=== PATIENT | male | born 1985 | race Caucasian/White ===

== ENCOUNTER 2023-10-05 13:53 | Outpatient (AMB) | payer MEDICAID, SELFPAY ==
--- NOTE | 2023-10-05 14:00 | A.OFFVIS_ITS ---
Intake Vital Signs 10/05/23 14:07 Height 5 ft 9 in Weight 193 lb 6 oz BMI 28.6 BP 173/76 H Blood Pressure Location Lt brachial Position Sitting Pulse 119 H Pulse Source Pulse Oximeter Pulse Oximetry (%) 99 Intake Visit Reasons: Other idiopathic scoliosis, thoracolumbar region Allergies celecoxib [From Celebrex] Allergy (Unknown, Verified 10/05/23 14:06) Abdominal Pain HPI Other idiopathic scoliosis, thoracolumbar region HPI Details Patient is a pleasant 37 years old male is history of severe scoliosis of thoracolumbar region s/p spinal fusion T2-T12 for scoliosis at [facility] in 2013, presents today for initial evaluation for low back pain with bilateral radiculopathy. Denies any recent trauma, injury, or falls. Patient reports back surgery for scoliosis was helpful however he experiences hardware causes him increase pain during cold weather. He also reports low back pain with radiation to his buttocks and his lower extremities posteriorly and anteriorly is associated numbness and tingling in his both feet and shooting pain behind h is right knee. Pain is aggravated with bending forward, lumbar flexion, lifting, pulling, pushing, prolonged walking or standing. Pain affects his daily functioning, mobility, sleep, and social interactions. He completed physical therapy while residing in [place] over 2 years ago with no pain relief or function improvement. Patient use to manage his pain and Percocet 5-325 mg t.i.d. p.r.n. which provided him adequate analgesia and allowed him to be more functional and less symptomatic. However patient reports he was recently rotated to Suboxone 5 days ago and has experienced significant nausea, occasional vomiting and dizziness. Patient recently completed thoracic and lumbar spine x-rays and [facility] and has shown results on his iPhone which show intact hardware and degenerative changes and thoracic and lumbar spine. He also has pending lumbar spine MRI which is being scheduled. Denies any fever, chills, abdominal or groin pain, weakness, foot drop, bladder or bowel dysfunction, or saddle anesthesia. Location Upper back, radiates to lower back and bilateral lower extremities Duration Chronic pain due to scoliosis Characteristics of symptom or complaint Stabbing, throbbing, burning, tightness, sharp, aching Aggravating or associated factors Movements, walking or standing, forward bending, lifting, cold weather Relieving factors Daily stretching exercises, Flexeril, Percocet, ibuprofen, heat therapy Treatment Physical therapy, back surgery, TENS unit [facility] Medical History Chronic bilateral low back pain with bilateral sciatica Insomnia Cervicalgia Depression Chronic headaches Chronic pain syndrome Surgical History History of spinal fusion for scoliosis Social History Alcohol intake: former Patient Tobacco Use Status: Former Tobacco user Quit Date: March 2023 Tobacco use type: Cigarette e-Cigarette/Vaping Use: Currently Using Substance Use Type: Marijuana and Caffiene Substance Use Type Other:: 3-4 cups of coffee daily Review of Systems Const All systems reviewed & are unremarkable except as noted in HPI and below Physical Exam Vital Signs: Last Vital Signs Pulse 119 H 10/05/23 14:07 BP 173/76 H 10/05/23 14:07 Pulse Ox 99 10/05/23 14:07 BMI result Body Mass Index 28.6 General: Appears afebrile. Alert and oriented. Mood and affect appropriate. Follows and participates in conversation appropriately. Respiratory effort is unlabored. No cough. Able to transition from sit to stand unassisted. Ambulates with bilaterally normal heel strike and toe off, increase in right posterior leg pain with toe standing. Back/Spine/Pelvis Other: Limited lumbar ROM due to pain. Can flex forward to 60-65 degrees and extend to 5-10 degrees before experiencing lumbar pain. Demonstrates 5/5 strength of quadriceps bilaterally as well as flexion/dorsiflexion of bilateral feet against resistance. 2+ pedal pulses bilaterally. Seated straight leg rise with dorsiflexion positive on the right. +2 patellar and achilles reflexes bilaterally. Facet loading test positive bilaterally. Varghese?s, Gaenslen, Pelvic compression and Stinchfield tests are positive bilaterally. No groin pain with I/E hip rotations. Valsalva maneuver negative. Cervical Spine: cervical ROM normal and No Cervical spine tenderness Thoracic/Lumbar Spine: thoracic and lumbar spine normal to inspection, Thoracic/lumbar spine scar(s), Lasegue's sign positive on the right and localized, pain with thoraco-lumbar ROM, paraspinal muscle tenderness, thoraco- lumbar ROM limited, Thoracic/lumbar scoliosis, thoraco-lumbar spasm, No thoracic spinal tenderness and lumbar spinal tenderness Pelvis: no buttock tenderness Sacroiliac joints: bilaterally tender to palpation Extrem General: Yes capillary refill normal, Yes no clubbing, cyanosis or edema and Yes no calf tenderness Psych Appearance: grossly normal Mental Status: mental status grossly normal Speech and movement: Normal speech and movement present Affect: normal affect and Anxious affect present Attitude: cooperative Thought process: Normal thought process present Thought content: Normal thought content present, suicidality (none), no hallucinations and No Depressive thoughts present Insight: Good insight present (Psych) Judgement: Good judgement present (Psych) Results Reviewed Results Reviewed: No imaging reports are available for review. Assessment & Plan Assessment & Plan (1) Failed back syndrome: Code(s): M96.1 - Postlaminectomy syndrome, not elsewhere classified (2) Muscle spasm: Code(s): M62.838 - Other muscle spasm (3) Chronic pain syndrome: Code(s): G89.4 - Chronic pain syndrome (4) Chronic, continuous use of opioids: Code(s): F11.90 - Opioid use, unspecified, uncomplicated (5) Chronic bilateral low back pain with bilateral sciatica: Code(s): M54.42 - Lumbago with sciatica, left side; M54.41 - Lumbago with sciatica, right side; G89.29 - Other chronic pain (6) Lumbar spondylosis: Code(s): M47.816 - Spondylosis without myelopathy or radiculopathy, lumbar region Plan Discussed treatment options for both his axial low back as well as radicular pain. For ongoing axial low back pain will tentatively plan for diagnostic bilateral L3-L4 DR L5 medial branch blocks with local and fluoroscopy. If he has significant relief from the diagnostic blocks for his axial low back pain, will consider either therapeutic injections, Sprint PNS or RFA depending on his preference. We also discussed neuromodulation with spinal cord stimulation. Patient has pending lumbar spine MRI which has not been scheduled yet. Once completed, patient will return to the clinic to discuss results of the MRI findings when it is done and consider interventional therapy as indicated.? Patient was advised to notify his PCP with current symptoms when taking Suboxone and consider switching it to Zubsolv to decrease nausea episodes. I have informed patient that our office does not offer opioid prescribing at this time. Scripts provided for methocarbamol and diclofenac potassium. Side effects and precautions were discussed with patient. Patient will stop Flexeril due to drowsiness and dizziness. All questions and concerns have been answered and patient agreed with the plan. Follow-up for MRI results and sooner as needed. Medications: New diclofenac potassium Take it with food and full glass of water. 50 mg PO BID PRN 60 tabs 0RF pain 30 days G89.4 - Chronic pain syndrome, M96.1 - Postlaminectomy syndrome, not elsewhere classified methocarbamol 750 mg PO Q8H PRN 90 tabs 0RF muscle spasm 30 days G89.4 - Chronic pain syndrome, M62.838 - Other muscle spasm, M96.1 - Postlaminectomy syndrome, not elsewhere classified Coding Level of Care Code New Pt Level 4 (41122) Diagnoses Failed back syndrome M96.1 Muscle spasm M62.838 Chronic pain syndrome G89.4 Chronic, continuous use of opioids F11.90 Chronic bilateral low back pain with bilateral sciatica M54.42; M54.41; G89.29 Lumbar spondylosis M47.816
[2023-10-05 14:07] VITALS: BP 173/76; PULSE 119; O2SAT 99; BMI 28.6
== END 2023-10-05 14:53 | disposition home or self-care (01) ==
PROVIDERS: PCP Nurse Practitioner Family; Referring Provider Nurse Practitioner Family; Visit Provider Nurse Practitioner Family
DX: M96.1 Postlaminectomy syndrome, not elsewhere classified (principal); M62.838 Other muscle spasm; G89.4 Chronic pain syndrome; Z79.891 Long term (current) use of opiate analgesic; M54.42 Lumbago with sciatica, left side; M54.41 Lumbago with sciatica, right side; G89.29 Other chronic pain; M47.816 Spondylosis without myelopathy or radiculopathy, lumbar region
CPT/HCPCS: 99204

== ENCOUNTER → 2023-10-05 13:53 | Outpatient (BNVA) | payer MEDICAID, SELFPAY | PROVIDERS: PCP Nurse Practitioner Family; Referring Provider Nurse Practitioner Family; Visit Provider Nurse Practitioner Family | DX: M96.1 Postlaminectomy syndrome, not elsewhere classified (principal); M62.838 Other muscle spasm; M54.42 Lumbago with sciatica, left side; M54.41 Lumbago with sciatica, right side; M47.816 Spondylosis without myelopathy or radiculopathy, lumbar region; F11.20 Opioid dependence, uncomplicated; G89.29 Other chronic pain | CPT/HCPCS: 99212 ==

== ENCOUNTER 2023-10-23 09:05 | Outpatient (AMB) | payer MEDICAID, SELFPAY ==
--- NOTE | 2023-10-23 09:14 | A.OFFVIS_ITS ---
Intake Intake Visit Reasons: lumbago with sciatica Heel Gouger Required: No Allergies celecoxib [From Celebrex] Allergy (Unknown, Verified 10/05/23 14:06) Abdominal Pain PFSH Medical History Chronic bilateral low back pain with bilateral sciatica Insomnia Cervicalgia Depression Chronic headaches Chronic pain syndrome Surgical History History of spinal fusion for scoliosis Social History Alcohol intake: former Patient Tobacco Use Status: Former Tobacco user Quit Date: March 2023 Tobacco use type: Cigarette e-Cigarette/Vaping Use: Currently Using Substance Use Type: Marijuana and Caffiene Assessment & Plan Assessment & Plan (1) Chronic bilateral low back pain with bilateral sciatica: Code(s): M54.42 - Lumbago with sciatica, left side; M54.41 - Lumbago with sciatica, right side; G89.29 - Other chronic pain Plan Dear Michelle, Thank you for referring Mr Delgado to our office today. He is a very nice 37-year-old gentleman who has a previous spinal history of scoliosis correction done about 15 or [address] [facility] from T2-T12. 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 He has tried activity modifications and medic ations such as ibuprofen and Tylenol. These things did not seem to be helping much. He is more recently started on oxycodone and morphine which he takes once or twice a day. To this point he has had no conservative treatment in the form of physical therapy or injections. He tells me that he will feel the pain from the moment he gets up during the day and will get steadily worse throughout the day as he is working. Bending or twisting can be very difficult. He was sent today because of an MRI done at [facility] showing pars defects and spondylolisthesis at L5-S1. He was not felt to be a good candidate for injections at the pain management office. PMH: Scoliosis correction, cholecystectomy Social hx: She has not smoke cigarettes or use alcohol but he smokes marijuana daily Medications: Oxycodone, morphine, ibuprofen and Tylenol Allergies: No drug allergies Physical exam: He is awake alert oriented no acute distress he has full strength of bilateral lower extremities with normal gait. Imaging review: Lumbar MRI done at [facility] shows pars defects at L5 with grade 1 spondylolisthesis and bilateral L5 foraminal narrowing. There is also MRI of his thoracic an x-ray of his thoracic showing Vickers rods from T2-T12 with minimal scoliotic curve. Impression: 37-year-old male with history of scoliosis correction in Vickers rods from T2-T12 done 15 years ago, presenting to the office today for evaluation of a progressively worsening low back pain over the last 6 months which is centered around the L5-S1 area and is now giving him what sounds like radiculopathy with some pain down into the back of his legs, lateral thighs with tingling of his feet. I reviewed all his imaging with him, went over the natural history of back pain. We discussed the fact that the scoliosis correction does predispose him to having chronic low back pain, but that he certainly could be experiencing pain from the pars defects and spondylolisthesis with subsequent foraminal narrowing. Typically this is something Dr. Rosales would treat with an anterior lumbar interbody fusion. We reviewed that procedure at length including risks, benefits etc.. We discussed the very rare complication of retrograde ejaculation specifically given his young age. He tells me he has a vasectomy in his not concerned with having any more children. I am going to review his imaging with Dr. Rosales, and finalize his surgical plan. I did give him a referral to physical therapy because typically insurance companies will want this done before surgery, however I do not expect it to do anything meaningful for his pain issues. I will call the patient back once I have a chance to speak with Dr. Rosales. Thank you for allowing us to care for your patient. The total time spent with this visit with this patient was 45 minutes reviewing history, physical exam, lumbar imaging review, and implementation of treatment plan or further diagnostic testing Max Rosales MD,PhD [facility] Orders: Orders PT Evaluation and Treatment Today G89.29 - Other chronic pain, M54.41 - Lumbago with sciatica, right side, M54.42 - Lumbago with sciatica, left side Coding Level of Care Code New Pt Level 4 (62832) Diagnoses Chronic bilateral low back pain with bilateral sciatica M54.42; M54.41; G89.29
== END 2023-10-23 10:18 | disposition home or self-care (01) ==
PROVIDERS: PCP Nurse Practitioner Family; Referring Provider Nurse Practitioner Family; Visit Provider Physician Assistant
DX: M54.42 Lumbago with sciatica, left side (principal); M54.41 Lumbago with sciatica, right side; G89.29 Other chronic pain
CPT/HCPCS: 99204

== ENCOUNTER → 2023-10-23 09:05 | Outpatient (BNVA) | payer MEDICAID, SELFPAY | PROVIDERS: PCP Nurse Practitioner Family; Visit Provider Physician Assistant | DX: M54.42 Lumbago with sciatica, left side (principal); M54.41 Lumbago with sciatica, right side; G89.29 Other chronic pain | CPT/HCPCS: 99212 ==

== ENCOUNTER → 2024-02-03 12:53 | Outpatient (BNV) | payer MEDICAID, SELFPAY | PROVIDERS: Admitting Provider Neurological Surgery; PCP Family Medicine; Visit Provider Internal Medicine | DX: Z01.810 Encounter for preprocedural cardiovascular examination (principal); M54.42 Lumbago with sciatica, left side; M54.41 Lumbago with sciatica, right side | CPT/HCPCS: 93010 ==

== ENCOUNTER 2024-02-05 11:09 | Outpatient (AMB) | payer MEDICAID, SELFPAY ==
--- NOTE | 2024-02-05 12:25 | HO.SPINEOV ---
Intake Visit Reasons: Discuss surgery Intake Note: Mr. Dutton is here today to discuss surgery Finance And Administration Manager Required: No Allergies pistachio nut Allergy (Severe, Verified 02/03/24 12:19) tongue swelling celecoxib [From Celebrex] Adverse Reaction (Severe, Verified 02/03/24 12:18) Abdominal Pain Assessment & Plan Assessment & Plan (1) Anterolisthesis of lumbosacral spine: Code(s): M43.17 - Spondylolisthesis, lumbosacral region Category: Medical (2) Lumbar degenerative disc disease: Code(s): M51.36 - Other intervertebral disc degeneration, lumbar region Category: Medical Plan On 02/05/2024, I saw for preoperative visit Livan Dutton to discuss his upcoming anterior lumbar interbody fusion L5-S1. We discussed the procedure, the expected length of stay which is 1 day and expected recovery. All questions were answered. I spent 20 minutes in his consult. Madhu Rosales MD, PhD Spine Fellowship Trained Neurosurgeon Director, [facility] [place] [facility] Coding Level of Care Code Est Pt Level 3 (73818) Diagnoses Anterolisthesis of lumbosacral spine M43.17 Lumbar degenerative disc disease M51.36
== END 2024-02-05 12:44 | disposition home or self-care (01) ==
PROVIDERS: PCP Nurse Practitioner Family; Referring Provider Nurse Practitioner Family; Visit Provider Neurological Surgery
DX: M43.17 Spondylolisthesis, lumbosacral region (principal); M51.36 Other intervertebral disc degeneration, lumbar region
CPT/HCPCS: 99213

== ENCOUNTER → 2024-02-05 11:09 | Outpatient (BNVA) | payer MEDICAID, SELFPAY | PROVIDERS: PCP Nurse Practitioner Family; Visit Provider Neurological Surgery | DX: M43.17 Spondylolisthesis, lumbosacral region (principal); M51.36 Other intervertebral disc degeneration, lumbar region | CPT/HCPCS: 99212 ==

== ENCOUNTER 2024-02-17 05:56 | Inpatient (IN) | payer MEDICAID, SELFPAY ==
--- NOTE | 2024-02-03 | ECG_ITS ---
Test Reason : preop Blood Pressure : / mmHG Vent. Rate : 074 BPM Atrial Rate : 074 BPM P-R Int : 134 ms QRS Dur : 088 ms QT Int : 372 ms P-R-T Axes : 035 039 017 degrees QTc Int : 412 ms Normal sinus rhythm Normal ECG No previous ECGs available Referred By: Violetta Umaña Electronically Signed By:MARIO ALMODOVAR
[2024-02-03 12:19] VITALS: BP 130/80; PULSE 94; RESP 16; O2SAT 98; BMI 28.1
--- NOTE | 2024-02-03 12:36 | HO.ANESPROP2 ---
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 [facility] Active Problems Active Problems: All Active Problems (Updated 02/03/24 @ 12:33 by Priscila Sauceda, ROYCE) Lumbar degenerative disc disease (Acute) Anterolisthesis of lumbosacral spine (Acute) Lumbar spondylosis (Acute) Chronic, continuous use of opioids (Acute) Muscle spasm (Acute) Failed back syndrome (Acute) Chronic bilateral low back pain with bilateral sciatica (Acute) Chronic pain syndrome (Acute) Past Medical History Medical History Skin graft infection (~1992) Tingling of both feet Scoliosis Postoperative nausea Chronic bilateral low back pain with bilateral sciatica Insomnia Cervicalgia Depression Chronic headaches Chronic pain syndrome Family History Family history of problems with anesthesia: Yes (Father - PONV) Surgical History Surgical History History of surgery on lower extremity Hx of vasectomy (~2019) Hx laparoscopic cholecystectomy History of spinal fusion for scoliosis (~2011) History of Problems with Anesthesia: Yes (PONV) Social History Social History (Updated 02/03/24 @ 12:38 by Priscila Sauceda, ROYCE) Are you a primary care manager to a significant other at home: Yes (2 children-mom to help post-op) Do you presently have visiting nurse or other home services: No Alcohol intake: former Patient Tobacco Use Status: Former Tobacco user Tobacco use type: Cigarette Years Smoked: 20 e-Cigarette/Vaping Use: Former Use Use of substances other than those prescribed or required for medical reasons: Yes Substance Use Type: Marijuana and Caffiene Substance Use Frequency: Daily Have you been hit, kicked, punched, or otherwise hurt by someone within the past year? If so, by whom?: No Are you DNR?: No Advance Directives: No Advance Directives Information Provided: Yes Advance Directives on File: No Recently lost weight without trying: No Poor oral hygiene: No Meds Allergies Allergy/AdvReac Type Severity Reaction Status Date / Time pistachio nut Allergy Severe tongue Verified 06/12/24 06:01 swelling celecoxib [From Celebrex] AdvReac Severe Abdominal Verified 02/17/24 06:01 Pain Home Medications ?Medication ?Instructions ?Recorded ?Confirmed ?Last Taken ?Type bupropion HCl 150 mg tablet,12 hr 150 mg PO BID 02/03/24 02/03/24 02/17/24 04:30 History sustained-release oxycodone-acetaminophen 10 mg-325 1 tab PO Q4H PRN Pain 02/03/24 02/03/24 02/17/24 04:30 History mg tablet (Percocet) Exam Height,Weight and Vital Signs: Height 5 ft 8 in Weight 83.7 kg Last Vital Signs Pulse 94 02/03/24 12:19 Resp 16 02/03/24 12:19 BP 130/80 02/03/24 12:19 Pulse Ox 98 02/03/24 12:19 O2 Del Method Room Air 02/03/24 12:19 Pertinent Lab Results Pertinent Lab Results: Lab Results 02/03/24 02/03/24 Range/Units 12:55 13:07 WBC 13.0 H (4.8-10.8) X10*3/uL RBC 4.91 (4.60-5.80) X10*6/uL Hgb 15.0 (14.0-18.0) g/dl Hct 42.8 (42.0-52.0) % MCV 87.2 (80.0-98.0) fL MCH 30.5 (27.0-33.0) pg MCHC 35.0 (31.0-36.0) g/dl RDW 12.2 (11.0-16.0) % Plt Count 394 (160-400) X10*3/uL MPV 9.4 (9.4-12.4) fL Absolute Nucleated RBC 0.000 (0.0-0.012) X10*3/uL Nucleated RBC % (auto) 0.0 (0.0-0.2) /100WBC Sodium 142 (135-145) mmol/L Potassium 4.4 (3.3-5.1) mmol/L Chloride 107 (96-108) mmol/L Carbon Dioxide 27 (22-29) mmol/L Anion Gap 12 (12-20) BUN 6 L (9-16) mg/dL Creatinine 0.91 (0.5-1.4) mg/dL Estim Creat Clear Calc 117.1 Estimated GFR > 60 Random Glucose 105 (60-115) mg/dL Calcium 10.3 H (8.4-10.2) mg/dL Blood Type O Positive Antibody Screen NEGATIVE Narrative Narrative: EKG 02/2024 Vent. Rate : 074 BPM Atrial Rate : 074 BPM P-R Int : 134 ms QRS Dur : 088 ms QT Int : 372 ms P-R-T Axes : 035 039 017 degrees QTc Int : 412 ms Normal sinus rhythm Normal ECG No previous ECGs available Airway Mallampati Class: II TM Dist: >3cm Neck ROM: Limited (Rods from previous surgery extend to collar bone) Loose/Missing/Broken Teeth: Yes (1 x pulled molar) Heart: RRR Lungs: CTAB Assessment and Plan Assessment Anesthesia Assessment: Anesthesia Plan Discussed, Smoking Cess. Discussed and PAT Visit Final Anesthetic Review Family History of Problems with Anesthesia: Yes (Father - PONV) History of Problems with Anesthesia: Yes (PONV) Documented by User: Rosaura Pereira MD 02/17/24 07:26 [facility] Past Medical History Medical History Skin graft infection (~1992) Tingling of both feet Scoliosis Postoperative nausea Chronic bilateral low back pain with bilateral sciatica Insomnia Cervicalgia Depression Chronic headaches Chronic pain syndrome Surgical History Surgical History History of surgery on lower extremity Hx of vasectomy (~2019) Hx laparoscopic cholecystectomy History of spinal fusion for scoliosis (~2011) Social History Social History (Updated 02/03/24 @ 12:38 by Priscila Sauceda RN) Are you a primary care manager to a significant other at home: Yes (2 children-mom to help post-op) Do you presently have visiting nurse or other home services: No Alcohol intake: former Patient Tobacco Use Status: Former Tobacco user Tobacco use type: Cigarette Years Smoked: 20 e-Cigarette/Vaping Use: Former Use Use of substances other than those prescribed or required for medical reasons: Yes Substance Use Type: Marijuana and Caffiene Substance Use Frequency: Daily Have you been hit, kicked, punched, or otherwise hurt by someone within the past year? If so, by whom?: No Are you DNR?: No Advance Directives: No Advance Directives Information Provided: Yes Advance Directives on File: No Recently lost weight without trying: No Poor oral hygiene: No Meds Allergies Allergy/AdvReac Type Severity Reaction Status Date / Time pistachio nut Allergy Severe tongue Verified 02/17/24 06:01 swelling celecoxib [From Celebrex] AdvReac Severe Abdominal Verified 02/17/24 06:01 Pain Home Medications ?Medication ?Instructions ?Recorded ?Confirmed ?Last Taken ?Type bupropion HCl 150 mg tablet,12 hr 150 mg PO BID 02/03/24 02/03/24 02/17/24 04:30 History sustained-release oxycodone-acetaminophen 10 mg-325 1 tab PO Q4H PRN Pain 02/03/24 02/03/24 02/17/24 04:30 History mg tablet (Percocet) Assessment and Plan Assessment Anesthesia Assessment: Chart Reviewed Final Anesthetic Review NPO: Yes ASA Class: II Final Preanesthetic Review: No Changes in Pt Med Stat, Meds/Allgs Chart Reviewed, Consent Obtained/Reviewed and Anes Risks/Benef Reviewed Patient Risk: Low Procedure Risk: Intermediate Anesthetic Plan Anesthetic Plan: GA Disposition: Standard PACU
[2024-02-03 13:38] LABS: Hematocrit 42.8 % (42.0-52.0); Mean Corpuscular Hemoglobin 30.5 pg (27.0-33.0); Mean Corpuscular Volume 87.2 fL (80.0-98.0); Mean Platelet Volume 9.4 fL (9.4-12.4); Platelet Count 394 X10*3/uL (160-400); Red Blood Count 4.91 X10*6/uL (4.60-5.80); Red Cell Distribution Width 12.2 % (11.0-16.0)
[2024-02-03 14:42] LABS: Anion Gap 12 (12-20); Blood Urea Nitrogen 6 mg/dL (9-16); Calcium 10.3 mg/dL (8.4-10.2); Carbon Dioxide 27 mmol/L (22-29); Chloride 107 mmol/L (96-108); Creatinine Clr Calc Pharmacy 117.1; Estimated Glomerular Filt Rate > 60; Glucose Random 105 mg/dL (60-115); Potassium 4.4 mmol/L (3.3-5.1); Sodium 142 mmol/L (135-145)
[2024-02-17] VITALS (25 sets, daily range): BP systolic 116–151; BP diastolic 54–98; PULSE 80–121; RESP 14–24; TEMP 36.3–36.7; O2SAT 96–100; BMI 28.2
--- NOTE | ~2024-02-17 | FL_ITS ---
EXAMINATION: XR FLUOROSCOPY WITH IMAGES CLINICAL INFORMATION: L5-S1 lumbar interbody fusion. COMPARISON: None available. TECHNIQUE: Fluoroscopy Supervised By: Dr. Madhu Rosales. Fluoroscopy Time: 1 minute 8 seconds. Cumulative Dose: 67.959 mGy. DAP: 22.972 Gy-cm2. Images: 4. FINDINGS: Imaging and fluoroscopy provided to Dr. Rosales for L5-S1 posterior pedicular screws and interbody device. Please see Dr. Rosales' report for full details. FL/FL guidance in OR IMPRESSION: Fluoroscopy and imaging provided for L5-S1 posterior pedicular screws and interbody devices.
--- NOTE | ~2024-02-17 | XR_ITS ---
EXAMINATION: XR LUMBOSACRAL SPINE CLINICAL INFORMATION: Evaluation of hardware COMPARISON: None available. TECHNIQUE: Single view of the lumbar spine FINDINGS: Surgical hardware seen at the lumbosacral junction. There is stabilization hardware in the lower thoracic spine as well as surgical clips in right upper quadrant. Pelvis intact. Hips intact. XR/XR lumbar spine 1V IMPRESSION: Intervertebral disc spacer overlies the lumbosacral junction on this single view.
[2024-02-17] MEDS: methocarbamoL 750 MG TABLET PO ×3 (06:21→21:01)
[2024-02-17] MEDS: Gabapentin 300 MG CAPSULE PO ×3 (06:22→19:58)
[2024-02-17] MEDS: Scopolamine 1.5 MG PATCH.TD.3 TRANSDERMA (06:23)
[2024-02-17] MEDS: Lactated Ringers 1,000 ML 100 ML IVCONT (06:33)
--- NOTE | 2024-02-17 07:15 | MHC.SHP ---
Pre-Procedural Eval Section A - 24 Hr Update-Section A only Date of Service: 02/17/24 Section B - Complete if H&P > 30 days Chief Complaint: Chronic back pain Relevant Social History: None Present Medications: None Medical History: No relevant PMH Allergies: Allergies Allergy/AdvReac Type Severity Reaction Status Date / Time pistachio nut Allergy Severe tongue Verified 02/17/24 06:01 swelling celecoxib [From Celebrex] AdvReac Severe Abdominal Verified 02/17/24 06:01 Pain Review of Systems Sugical H&P ROS: Negative: Constitution, Cardiovascular, Respiratory, Neurological, Psychiatric, Hem-Onc, Allergic/Immunologic, Gastrointestinal, Genitourinary, Musculoskeletal, Integumentary, Endocrine and Eyes/Ears/Nose/Throat Exam Surgical H&P Exam: Normal: HEENT, Normal: Abdomen (Nontender), Normal: Skin and Normal: Neurological and Not Evaluated: Heart and Not Evaluated: Lungs Plan Diagnosis/Plan: Unchanged I have reviewed the history and physical and performed a pertinent physical examination on my patient. No changes have occurred unless specified. Anterior lumbar interbody fusion L5-S1 Time Spent With Patient Time: Total time managing care of this patient today ___10_ minutes.
--- NOTE | 2024-02-17 07:53 | PHA.MEDREC ---
Pharmacy Consult ? Medication Reconciliation Pharmacy has completed the medication reconciliation. Reviewed med rec done by nursing
--- NOTE | 2024-02-17 09:08 | P.OP_ITS ---
Operative Note Operative Note Date of Service: 02/17/24 Narrative: Patient was evaluated by Dr. Rosales for chronic lower back pain and radiculopathy and scheduled for ALIF L5-S1. I met with the patient pre- operatively and discussed the access part of the procedure and risks an the patient agreed to proceed. He was brought to the operating room and general anaesthesia was administered without incident. Abdomen was prepped sterily and draped. Timeout was done. 6 cm infra-umbilical vertical incision was done and it was brought down to the anterior rectus sheath through the thick layer of subcutaneous fat. Rectus sheath was opened vertically and left rectus muscle was mobilized. Left inferior epigastric vessels were protected. Spermatic cord was dissected and protected ant retro-peritoneal plane was developed. Left ureter was visualized and protected. Bookwalter retractor was pl aced. Dissection was carried at the medial aspect of the the left common iliac vein which was mobilized from the spine and middle sacral vessels were divided, Bipolar electrocautery was used to completely free L5-S1 disc anteriorly. Care was taken to stay immidiately on the surface of the spine to avoid nerve injury.Midline was marked with X-ray imaging. Doctor Rosales then proceeded with diskectomy and cage fusion.Hemostasis was checked and was excellent. Gelfoam sponge was placed over the disc space. Ureter was intact and there was a good iliac pulse. Incision was injected with diluted Lidocaine/Marcaine mixture and closed by layers using O-Maxone on the fascia and absorbable subcutaneous and subcuticular closure. Exofin glue and steri-strip were applied. EBL: less then 10ml Complication:none
--- NOTE | 2024-02-17 10:31 | P.OP_ITS ---
Operative Note Operative Note Date of Service: 02/17/24 Narrative: Preoperative Diagnosis: 1.) Lumbar spondylolisthesis and degenerative disc disease L5-S1; back pain Procedure: L5-S1 discectomy, arthrodesis and implantation cage through an anterior lumbar approach (ALIF) ; anterior instrumentation L5-S1; allograft Indication for Surgery Lumbar degenerative disc disease and lumbar spondylolisthesis Consent Informed Consent was obtained for this operation. I have explained the nature, purpose and benefits of the operation. I have discussed the risks and benefit of the operation including possible complications or adverse events with patient/family. Alternative(s) were discussed with the patient with their relative benefits and risks as well as the consequences of not accepting the operation were included in obtaining consent. Surgeon: DO BENSON MD, PHD Procedure Assisted By: KEKE NEWMAN MD and BEAN Medrano Description of Procedure This patient is suffering from chronic back pain due to an unstable L5-S1 lumbar spondylolisthesis. The patient was offered an anterior lumbar interbody fusion and posterior instrumented fusion. The procedure complications were explained. The patient was consented. The patient was brought to the operating room and en dotracheally intubated. The patient was put in a supine position. Prep and drape was done followed by timeout. Dr. Newman, co-surgeon, provided the access to the L5-S1 disc space through an anterior approach. He was assisted by physician training and development assistant who performed manual retraction. He will dictate the approach in a separate operative note. When the L5-S1 disc space was exposed I took over the procedure. An annulotomy was done followed by a partial discectomy. Sequential trial implants were inserted and advanced towards the posterior wall of the disc space. I completed the discectomy and prepare the endplates. Then a 24 x 36 x 14 and 16 degree lordosis 4 web cage filled with allograft was inserted into the disc space. The implant was secured with Two screws with 1 screw of 27 mm that was secured in the S1 vertebral body. The retractor was removed and hemostasis was done by Dr. Murray who closed the incision. This marked first part of the procedure. Accordingly the patient was turned prone on the Oleksandr spine table and 2 C arms were installed for fluoroscopy. Prep and drape was done followed by a second timeout. 2 paramedian incisions were made lateral from the L5-S1 pedicles. The muscle fascia was opened and the musculature was split bluntly to expose the posterolateral gutter. The following steps were taken for pedicle screw placement: The pediguard tap was used to create a transpedicular trajectory into the vertebral body. A K wire was advanced. A specially designed instrument was advanced over the K wire to decorticate the posterolateral gutter. Pedicle screw was advanced after which the K wire was removed. Following the steps pedicle screws were placed in the bilateral L5 and S1 pedicles. Total of 4 screws were placed with the following measurements: 6.5 x 45 mm and 6.5 x 40 mm in the bilateral L5 and S1 pedicles respectively.. A 40 mm ray was tunneled bilaterally and locked down with locking caps. The extension towers were removed. The posterolateral fusion was completed by laying down allograft in the posterolateral gutter. Hemostasis was done. The paramedian incisions were closed with an 0 Vicryl to fascia and 3-0 Vicryl to subdermal layer. Steri-Strips were used to approximate the incision. An OpSite with Tegaderm was used to cover the incisions. All sponge and needle counts were correct. The patient was extubated and transported in stable condition to recovery room. The physician training and development assistant was critical for the following aspects of surgery: interpretation of x-rays, insertion of pedicle screws and closure of the paramedian incisions Anesthesia: General Estimated Blood Loss (ml): 120 mL Duration of Surgery: 2 hour 30 minutes Complications: None Postoperative Plan: Admit to inpatient for observation
[2024-02-17] MEDS: HYDROmorphone HCl 0.5 MG/0.5 ML SYRINGE IVPUSH ×7 (11:10→12:35)
[2024-02-17] MEDS: Acetaminophen 325 MG TABLET 975 MG PO (14:31)
[2024-02-17] MEDS: 0.9 % Sodium Chloride 1,000 ML 75 ML IVCONT (14:33)
[2024-02-17] MEDS: ceFAZolin Sodium/Dextrose,Iso 2 GM/50 ML PIGGYBACK IV (14:33)
[2024-02-17] MEDS: HYDROmorphone HCl 1 MG/ML SYRINGE IVPUSH ×4 (14:37→22:55)
[2024-02-17] MEDS: oxyCODONE HCl Immed Release 5 MG TABLET 10 MG PO ×2 (15:18→21:01)
[2024-02-17] MEDS: oxyCODONE HCl Immed Release 5 MG TABLET PO (16:14)
[2024-02-17] MEDS: ondansetron HCL 4 MG/2 ML VIAL IVPUSH (19:16)
--- NOTE | 2024-02-17 19:25 | PC.NURSE ---
Patient c/o uncontrolled pain, medicated per Mar, patient continues c/o severe pain, reached out to the provider but no additional medication ordered, patient informed/educated and night RN made aware. Patient did state that he might want to leave AMA if the pain is not controlled.
[2024-02-17] MEDS: Famotidine 20 MG TABLET PO (19:58)
[2024-02-17] MEDS: Docusate Sodium 100 MG CAPSULE PO (20:01)
[2024-02-18] MEDS: oxyCODONE HCl Immed Release 5 MG TABLET 10 MG PO ×3 (00:58→09:07)
[2024-02-18] MEDS: HYDROmorphone HCl 1 MG/ML SYRINGE IVPUSH ×2 (01:58→07:11)
[2024-02-18] MEDS: HYDROmorphone HCl 2 MG/ML VIAL 1.5 MG IVPUSH (04:11)
[2024-02-18 04:15] VITALS: BP 132/78; PULSE 110; RESP 23; TEMP 37; O2SAT 98
[2024-02-18] MEDS: Acetaminophen 325 MG TABLET 975 MG PO (05:08)
[2024-02-18] MEDS: Famotidine 20 MG TABLET PO (07:10)
[2024-02-18] MEDS: Gabapentin 300 MG CAPSULE PO (07:10)
[2024-02-18] MEDS: Docusate Sodium 100 MG CAPSULE PO (07:11)
[2024-02-18 07:26] VITALS: BP 131/72; PULSE 82; RESP 20; TEMP 37; O2SAT 97
--- NOTE | 2024-02-18 08:00 | HO.POSTANES ---
Post Anesthesia Evaluation Post Anesthesia Evaluation Date of Service: 02/18/24 Vital Signs: Vital Signs Temp Pulse Resp BP Pulse Ox O2 Del Method 02/18/24 07:26 98.6 F 82 20 131/72 97 Room Air 02/18/24 04:15 98.6 F 110 H 23 H 132/78 98 Room Air Anesthesia: General Endotracheal-GETA Mental Status: Awake Pain Control: Satisfactory Nausea/Vomiting: None Hydration: Adequate Anesthesia-Related Issues: No Anes. Related Issues
[2024-02-18 08:43] VITALS: BP 131/72; PULSE 82; O2SAT 97
--- NOTE | 2024-02-18 09:07 | PM.DS ---
DS: Providers Provider Date of Service: 02/18/24 Date of admission: 02/17/24 05:56 Primary care physician: Anamaria Ortiz MD DS: Summary Time Attestation Discharge Coordination Time (in mins): 30 Quality: Safe Use of Opioids Does Pt have an Active Cancer Diagnosis on the Problem List?: No Quality: Stroke Does the patient have a stroke diagnosis?: No Physical Exam Vital Signs: Vital Signs: Last Vital Signs Temp 98.6 F 02/18/24 07:26 Pulse 82 02/18/24 07:26 Resp 20 02/18/24 07:26 BP 131/72 02/18/24 07:26 Pulse Ox 97 02/18/24 07:26 O2 Del Method Room Air 02/18/24 07:26 O2 Flow Rate 6 02/17/24 12:25 BMI result Body Mass Index 28.2 Discharge Plan Discharge Anticipated Discharge Date/Time: 02/18/24 09:07 Patient Disposition: Home, Self-Care Discharge Diagnosis: S/P L5-S1 ALIF Referrals: Anamaria Ortiz MD [Primary Care Provider] - 1 Week Discharge Medications: New hydromorphone 4 mg tablet 4 mg PO TID PRN (Reason: severe pain refractory to oxycodone) Qty: 9 0RF gabapentin 300 mg capsule 300 mg PO BID Qty: 30 0RF methocarbamol 750 mg tablet 750 mg PO BID PRN (Reason: muscle spasms) Qty: 30 0RF Continued bupropion HCl 150 mg Tablet Sustained-Release 12 Hr 150 mg PO BID oxycodone-acetaminophen [Percocet] 10-325 mg Tablet 1 tab PO Q4H PRN (Reason: Pain) Discharge Orders: Discharge Order (Routine); Ordered 02/18/24 Ordered By: Fredi Padilla Diet: Advance to usual diet Activity on Discharge: As tolerated Stand Alone Forms: Patient Portal Discharge page Print Language: Vincentian Activity Restrictions/Additional Instructions: After your spinal surgery we ask you to observe the following restrictions/guidelines: Activity: With lumbar fusion surgery it is normal to have days in the first couple of weeks where you have increased leg pain. This usually lasts 1-2 days and self resolves with the continuation of medication. Attempt to stay mobile and continue activity as tolerated. It is normal to feel some discomfort as you increase your activity, but that will improve with time. We ask you avoid heavy lifting or activities that cause pain. As a general rule, 8lbs is a safe limit for lifting right after surgery. Walk as much as you feel comfortable but not to exhaustion. You will feel extra tired the first few days after surgery. Stay well hydrated. It is OK to walk up and down stairs You may return to driving when you are off narcotics (such as vicodin, oxycodone, dilaudid, etc), and you are back to normal functional capacity. If you have any concerns please check with office before driving. Return to work is specific to each patient and each surgery, so please speak with your doctor/PA at first follow up. Please bring paperwork such as FMLA at that time if you need it filled out. Medications: We are sending you home with a small Rx of dilaudid to get you through the next few days. This will not refilled, you already take chronic Oxycodone. It is recommended that you take Tylenol 500 mg every 4 hours for the 1st week postoperatively, ?alongside ibuprofen 600 mg every 8 hours. We will also be prescribing gabapentin 300 mg to be taken twice daily for the 1st month postoperatively. We will give you a short supply of narcotics after surgery (usually one weeks worth). ??Please use this for breakthrough pain that is refractory to the Tylenol ibuprofen and gabapentin. If you need more please call the office but do not use more than prescribed. You will need to give our office 48 hours notice if you need narcotics refilled and we do not fill narcotics on weekends or evenings. If you are on a narcotic, it is a good idea to take a stool softener such as colace or senna to avoid constipation If you take blood thinner such as aspirin, Plavix, Coumadin, Effient, Eliquis etc for conditions such as Afib, DVT, Pulmonary embolus, coronary disease, stents etc please speak with your surgeon about specific details as to when you can resume these medications. You can resume NSAIDs on post op day 1 (eg: Motrin, Naproxen, etc). Follow up: Please call the office, , after surgery to arrange a 3 week follow up for wound check. Wound Care: You may remove your dressing on the first day after surgery. ?You may ?leave open to air. Please do not remove the steri strips underneath. they will fall off on their own in one week. IT IS NORMAL FOR THE WOUND TO OOZE OR BE BLOODY FOR A FEW DAYS AFTER SURGERY. ?IF THIS HAPPENS JUST PLACE NEW DRESSING OVER IT TO AVOID STAINING CLOTHES. You may shower on post op day # 1 We ask that you do not let the water soak the wound. If it does get wet, just towel dry lightly. Please do not scrub your incision or place any type of chemical/ointment on the wound. No tub baths, pools or jacuzzis for one month. If you have any leaking or redness from your wound, or fevers, please call office Care Plan Goals: Return to normal activity as tolerated Health Concerns: None Plan of Treatment: Follow-up in clinic in 2-3 weeks Assessment: POD: 1 Procedure: L5-S1 ALIVish Licona was seen this morning on 3-s sitting upright eating breakfast. Patient reports he is up walking around is otherwise doing well. He feels his radicular leg symptoms are much better than pre-operatively. He still reports low back pain with good relief with dilaudid pain medication. He is voiding well, tolerating diet. Afebrile, vital signs stable. Full strength 5/5 LE. Back dressings have no staining and no signs of hematoma. Area is dry. Plan: Livan is postop day 1 from a L5-S1 alif. He continues to do very well, and reports good control of his reported severe low back pain. He is on oxycodone at home, and requested 2-3 days of additional pain medication for breakthrough pain. This is reasonable as he is stabilized on his current oxycodone dose, and his maintenance dose his pain is likely not enough to help his postsurgical pain. I sent him in 3 days worth of hydromorphone, and gave him nonnarcotic p.o. medications to take as needed. He can call the office for refills on the start narcotic medications. Patient meets criteria to be medically discharged home. Fredi Rosales MD,PhD [facility]
--- NOTE | 2024-02-18 09:42 | MHC.CM.PN ---
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
== END 2024-02-18 09:24 | disposition home or self-care (01) | DRG 304 ==
LOC: HO.SSSA 09:51 → HO.S3 11:17
PROVIDERS: Nurse Practitioner; Admitting Provider Neurological Surgery; PCP Family Medicine; Visit Provider Neurological Surgery
PROC: 0SG30A0 Fusion of Lumbosacral Joint with Interbody Fusion Device, Anterior Approach, Anterior Column, Open Approach (ICD-10-PCS; principal; 2024-02-17 07:30)
DX: M43.17 Spondylolisthesis, lumbosacral region (principal); M51.17 Intervertebral disc disorders with radiculopathy, lumbosacral region; Z87.891 Personal history of nicotine dependence; Z79.899 Other long term (current) drug therapy
CPT/HCPCS: 36415; 72020; 80048; 85027; 86850; 86900; 86901; 93005; 97161; C1713; C1889; J0131; J0690; J1100; J1170; J1596; J2250; J2405; J2704; J3010; L8699

== ENCOUNTER → 2024-02-17 05:56 | Outpatient (BNV) | payer MEDICAID, SELFPAY | PROVIDERS: Admitting Provider Neurological Surgery; PCP Family Medicine; Visit Provider Surgery | DX: M43.16 Spondylolisthesis, lumbar region (principal); M51.36 Other intervertebral disc degeneration, lumbar region; M54.41 Lumbago with sciatica, right side; M54.42 Lumbago with sciatica, left side | CPT/HCPCS: 20930; 22558; 22612; 22840; 22853; 99499 ==

== ENCOUNTER 2024-03-07 10:54 | Outpatient (REF) | payer MEDICAID, SELFPAY | END 2024-03-07 10:55 | disposition home or self-care (01) | LOC: HO.HOSX 10:54 | PROVIDERS: PCP Nurse Practitioner Family; Visit Provider Physician Assistant | DX: Z98.1 Arthrodesis status (principal) | CPT/HCPCS: 99212 ==

== ENCOUNTER 2024-03-07 10:54 | Outpatient (AMB) | payer MEDICAID, SELFPAY ==
--- NOTE | 2024-03-07 10:56 | A.SPINEOV_ITS ---
Intake Visit Reasons: 1st post op Intake Note: Mr. Dutton is here for his 1st post op appointment. Laboratory Helper Required: No Allergies pistachio nut Allergy (Severe, Verified 02/17/24 06:01) tongue swelling celecoxib [From Celebrex] Adverse Reaction (Severe, Verified 02/17/24 06:01) Abdominal Pain Assessment & Plan Assessment & Plan (1) S/P spinal fusion: Code(s): Z98.1 - Arthrodesis status Category: Surgical Plan Procedure: L5-S1 MALU Licona comes in today for his 1st postoperative visit. He reports he is very satisfied with the surgery and feels much better than he did pre- operatively. The patient reports he is up walking around and completing the majority of his ADLs. He states that he has been essentially pain-free since surgery. He has been walking multiple miles per day and feels he has his ?normal life? back. He inquired about further exercise, and was advised to refrain from any excessive heavy weight lifting until he is fully healed. No new neurological deficits. Patient is able to ambulate well, rises from a seated position without difficulty. Anterior and posterior incision sites are closed, well healing, with no signs of drainage. We will follow-up with the patient in 6 weeks for their 2nd postoperative visit. At that time we will get x-rays to review with the patient. Fredi Rosales MD,PhD [facility] Coding Level of Care Code Global (28533) Diagnoses S/P spinal fusion Z98.1
== END 2024-03-07 11:16 | disposition home or self-care (01) ==
PROVIDERS: PCP Nurse Practitioner Family; Visit Provider Physician Assistant
DX: Z98.1 Arthrodesis status (principal)
CPT/HCPCS: 99024

== ENCOUNTER 2024-04-18 09:49 | Outpatient (REF) | payer MEDICAID, SELFPAY ==
--- NOTE | ~2024-04-18 | XR_ITS ---
EXAMINATION: XR LUMBOSACRAL SPINE CLINICAL INFORMATION: Status post arthrodesis. COMPARISON: Radiographs dated 02/17/2024. TECHNIQUE: AP and lateral views of the lumbar spine were obtained. Lateral views were obtained in flexion, extension, and neutral positions. FINDINGS: There is bony demineralization. There is a mild lumbar rotatory levoscoliosis. Vertebral body heights and alignment are normal. There is incompletely covered lower thoracic fusion hardware. There are posterior fixation rods, pedicular screws and disc spacers related to an L5-S1 posterior fusion . There is a 6 mm anterolisthesis at this level. No hardware failure or loosening is seen, and there is no instability with flexion or extension. No acute fracture or spondylolisthesis is seen. The posterior elements are intact. There are right upper quadrant surgical clips. XR/XR lumbar spine 4V min IMPRESSION: There is intact orthopedic hardware related to an L5-S1 posterior fusion, with a 6 mm anterolisthesis. No hardware failure or loosening is seen. There is no instability with flexion or extension. Electronically signed by: Stanford Tavera MD 05/17/2024 07:57 PM EDT
== END 2024-04-18 09:50 | disposition home or self-care (01) ==
LOC: HO.HOSX 09:49
PROVIDERS: Visit Provider Physician Assistant
DX: Z98.1 Arthrodesis status (principal)
CPT/HCPCS: 72110; 99212

== ENCOUNTER 2024-04-18 09:52 | Outpatient (AMB) | payer MEDICAID, SELFPAY ==
--- NOTE | 2024-04-18 10:10 | A.SPINEOV_ITS ---
Intake Visit Reasons: 6 weeks w/ Xray Intake Note: Mr. Dutton is here today for a 6 week f/u with x-rays. 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 He continues to do very well. He has been watching [employer] videos on core strengthening, and performing when exercises he can. He has few questions regarding the postoperative healing course which I answered to the best of my ability. He has no other concerns/issues/complaints. He is very satisfied with the surgery and happy at the procedure done. No new neurological deficits. Patient is able to ambulate well, rises from a seated position without difficulty. Anterior and posterior incision sites are closed & well healed. We will follow-up with the patient in 1 year to evaluate progress. At that time we will get X-rays to review with the patient. Fredi Rosales MD,PhD [facility] Coding Level of Care Code Global (59960) Diagnoses S/P spinal fusion Z98.1
== END 2024-04-18 10:19 | disposition home or self-care (01) ==
PROVIDERS: PCP Nurse Practitioner Family; Visit Provider Physician Assistant
DX: Z98.1 Arthrodesis status (principal)
CPT/HCPCS: 99024

== ENCOUNTER 2025-04-21 14:17 | Outpatient (REF) | payer MEDICAID, SELFPAY ==
--- NOTE | ~2025-04-21 | XR_ITS ---
CLINICAL HISTORY: Z98.1 - Arthrodesis status --- Additional Notes or Special Instructions: standing, a p and lateral 2 views lumbar spine Comparison: 04/18/2024 Findings: Alignment is not significantly changed. Surgical hardware positioning is unchanged No acute fractures or dislocation. No significant degenerative change. IMPRESSION: No significant change from prior exam. This document has been electronically signed by: Noah Gomez MD on 04/22/2025 09:24:13
== END 2025-04-21 14:18 | disposition home or self-care (01) ==
LOC: HO.HOSX 14:17
PROVIDERS: PCP Nurse Practitioner Family; Visit Provider Physician Assistant
DX: Z47.89 Encounter for other orthopedic aftercare (principal); Z98.1 Arthrodesis status
CPT/HCPCS: 72100; 99212

== ENCOUNTER 2025-04-21 14:17 | Outpatient (AMB) | payer MEDICAID, SELFPAY ==
--- OUTSIDE RECORDS SUMMARY | 2025-04-21 14:21 | XMS_ITS | Encounter Summary ---
Author Organization [employer] Address [address] [place] [address] Care Team Providers Care Hog Killer Name Role Phone Luz Brady WATCH [employer]AND [employer]SEMBLER Primary Care Provider [phone] Reason for Visit * Reason Onset Date Comments Med Refill 07/16/2023 Encounter Details Date Type Department Care Team (Late st Contact Info) Description 07/16/2023 Refill [facility] [address] [place] [address] Luz Brady FNP [address] [place] [address] Chronic bilateral low back pain with bilateral sciatica Social History Tobacco Use Types Packs/Day Years Used Date Smoking Tobacco: Every Day Cigarettes Smokeless Tobacco: Never Alcohol Use Standard Drinks/Week Comments Not Currently 0 (1 standard drink = 0.6 oz pur e alcohol) Housing Stability Answer Date Recorded What is your housing situation today? I have [place] 06/22/[address] you li ve. Do you have problems with any of the following? None of the above 06/22/2023 Food Insecurity Answer Date Recorded Within the past 12 months, y ou worried that your food would run out before you got money to buy more: Never True 06/22/2023 Within the past 12 months,th e food you bought just didn't last and you didn't have enough money to get more: Never True Transportation Answer Date Recorded In the past 12 months, has l ack of transportation kept you from medical appts, meetings, work or from getting things needed for daily living? No 06/22/2023 Utilities Answer Date Recorded In the past 12 months, has t he electric, gas, oil or water company threatened to shut off services in your home? No 06/22/2023 Depression Answer Date Recorded Patient Health Questionnaire-2 Score 0 10/29/2022 Sex and Gender Information Value Date Recorded Sex Assigned at Male 09/04/2022 10:23 AM EST Legal Sex Male 8:39 PM EDT Gender Identity Male 09/04/2022 10:23 AM EST Sexual Orientation Straight 10/03/2022 7: 58 AM EST documented as of this encounter Miscellaneous Notes * Telephone Encounter - Anjelica Lucio - 07/16/2023 12:07 PM EST [facility] Last fill Date:06/22/2023 Last OV: 05/13/2023 Next OV:NA Last UTOX: 05/01/2023 CSA Date: NA DNF Date: documented in this encounter Plan of Treatment Not on file documented as of this encounter Visit Diagnoses Diagnosis Chronic bilateral low back pain with bilateral sciatica documented in this encounter Care Teams Hog Killer Relationship Specialty Start Date End Date Luz Brady FNP [address] [place] [address] PCP - General Family Medicine 04/29/23 documented as of this encounter
--- OUTSIDE RECORDS SUMMARY | 2025-04-21 14:21 | XMS_ITS | Clinical Summary ---
Author Organization [facility] Address [address] [place] [phone] Phone Care Team Providers Care Concrete Carpenter Name Role Phone Anamaria Ortiz MD Primary Care Provider Allergies No known active allergies Medications Medication-Free TextIndications :Medical Marijuana Indications: Medical Marijuana Active Family History Relation Status Comments Father Alive Mother Alive Social History Tobacco Use Types Packs/Day Years Used Date Smoking Tobacco: Every Day Cigarettes Tobacco Cessation:Ready to Q uit: Not Asked; Counseling Given: Not Answered Alcohol Use Standard Drinks/Week Comments Yes 0 (1 standard drink = 0.6 oz pur e alcohol) 5-7 weekly Education Answer Date Recorded Are you interested in more education? Not on molly e 10/27/2023 Are you concerned about learning? Not on file 10/27/2023 No 10/27/2023 No 10/27/2023 Digital Access Answer Date Recorded No 10/27/2023 No 10/27/2023 Reliable internet access at home? Not on file 10/27/2023 Device with a working camera? Not on file Sex and Gender Information Value Date Recorded Sex Assigned at Not on file Legal Sex Male 10:03 AM EST Gender Identity Not on file Sexual Orientation Not on file Last Filed Vital Signs Vital Sign Reading Time Taken Comments Blood Pressure 150/92 08/09/2024 8:22 AM EST Pulse 104 08/09/2024 8:22 AM EST Temperature - - Respiratory Rate - - Oxygen Saturation - - Inhaled Oxygen Concentration - - Weight 87.7 kg (193 lb 6.4 oz) 08/09/2024 8:22 A M EST Height 177.8 cm (5' 10 ) 08/09/2024 8:22 AM EST Body Mass Index 27.75 08/09/2024 8:22 AM EST Plan of Treatment Health Maintenance Due Date Last Done Comments DEPRESSION SCREENING 1998 SMOKING Hx and SMOKELESS TOB ACCO SCREENING 1999 HEPATITIS C SCREENING 2004 HIV ONE-TIME SCREENING (18-6 5 YEARS) 2004 PNEUMOCOCCAL VACCINES (0-49 years) (1 of 2 - PCV) 2005 SCREENING FOR DIABETES 2021 COVID-19 VACCINE (1 - 2023-2 5 season) 2024 LIPID PANEL 07/18/2026 07/18/2021 Adult Td,Tdap Booster 06/18/2028 06/18/2018 HEPATITIS A VACCINES Aged Out No long er eligible based on patient's age to complete this topic HIB VACCINES Aged Out No longer eligi ble based on patient's age to complete this topic MENINGOCOCCAL VACCINES (ACWY) Aged Out No longer eligible based on patient's age to complete this topic MENINGOCOCCAL VACCINES (B) Aged Out N o longer eligible based on patient's age to complete this topic Medical Devices Not on file Insurance [address] [place] [address] [place] [address] [place] [address] [place] [address] [address] [place] [place] [address] [place] [address] [place] [phone] [facility] [place] [phone] Care Teams Concrete Carpenter Relationship Specialty Start Date End Date Anamaria Ortiz MD [address] [place] [phone] [email or web address] PCP - General Family Medicine 10/27/23 Additional Source Comments The information contained in this document represents components of the legal health record. It is not the complete legal health record.[facility]
--- NOTE | 2025-04-21 14:35 | A.SPINEOV_ITS ---
Intake Visit Reasons: 1 year f/up Intake Note: Mr. Dutton is here today for his 1 year follow up. Ventilating Engineer Required: No Allergies pistachio nut Allergy (Severe, Verified 04/18/24 10:11) tongue swelling celecoxib (From Celebrex) Adverse Reaction (Severe, Verified 04/18/24 10:11) Abdominal Pain Assessment & Plan Assessment & Plan (1) S/P spinal fusion: Code(s): Z98.1 - Arthrodesis status Category: Surgical Plan Mr Delgado is here for his 1 year follow-up. He has been doing great. 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 His x-rays today look great. Overall he is having no acute issues and I told him to call us if he is having an issue and we would be happy to see him back down the road. Total amount of time spent in this visit was 10 minutes in discussion of symptoms, lumbar x-ray imaging results and subsequent plan of care Max Rosales MD,PhD [facility] Coding Level of Care Code Est Pt Level 2 (50344) Diagnoses S/P spinal fusion Z98.1
== END 2025-04-21 14:58 | disposition home or self-care (01) ==
LOC: HO.HNS 14:18
PROVIDERS: PCP Nurse Practitioner Family; Visit Provider Physician Assistant
DX: Z98.1 Arthrodesis status (principal)
CPT/HCPCS: 99212

== ENCOUNTER → 2025-04-21 14:47 | Outpatient (BNV) | payer MEDICAID, SELFPAY | PROVIDERS: PCP Nurse Practitioner Family; Visit Provider Specialist | DX: Z98.1 Arthrodesis status (principal) | CPT/HCPCS: 72100 ==